=== PATIENT | male | born 1935 | race African-American/Black ===

== ENCOUNTER 2017-01-23 13:56 | Emergency (ER) | payer MEDICARE ==
[~2017-01-23] VITALS: Ht 188 cm; Wt 95.5 kg
[~2017-01-23 13:56] MED LIST: ALLEGRA-D 1212 HOUR PO; AMIODARONE200 MG PO; AMLODIPINE10 MG PO; ASPIRIN EC81 MG PO; ASPIRIN LOW DOS81 M2 PO; CHILD'S ASA81 MG PO; CLOPIDOGREL75 MG PO; COUMADIN5 MG PO; EC ASPIRIN325 M1 PO; ELDERTONIC OR; FLONASE NASAL50 MCG; FLUARIX QUADRIV1 IN1 IM; HYDROCHLORO25 MG/TAB PO; HYDROCHLOROT25 MG PO; HYDROCO/APAP1 T10 PO; LISINOPRIL10 MG PO; LOVASTATIN20 MG PO; LOVASTATIN40 MG PO; MECLIZINE25 MG PO; MEDDOSEPAK PO; MEDROL4 M1 PO; METOPROL TAR100 MG PO; MOBIC7.5 MG PO; PERIACTIN4 MG PO; PLAVIX75 MG PO; PRAVASTATIN80 MG PO; RYBIX ODT50 MG PO; ZPAK PO; ZYRTEC-D AL1 PO
[2017-01-23] MEDS ORDERED: COUMADIN5 MG PO (14:28)
[2017-01-23] MEDS ORDERED: GABAPENTIN100 MG PO (14:29)
[2017-01-23 15:22] LABS: HEMATOCRIT 38.9 % (39.0-50.0); HEMOGLOBIN 13.9 g/dl (14.0-18.0); IMMATURE GRANULOCYTES 0.7 % (0.0-1.0); MEAN CELL VOLUME 79.7 fL CALC (80.0-100.0); MEAN CORPUSCULAR HGB 28.5 pG CALC (26.0-32.0); MEAN CORPUSCULAR HGB CONC 35.7 g/L CALC (32.0-36.0); NEUT# 5.12 thou/uL (1.82-7.42); RED BLOOD COUNT 4.88 mill/uL (4.70-6.10); RED CELL DISTRI WIDTH 15.5 % (11.5-15.5)
[2017-01-23 15:33] LABS: ALBUMIN 3.8 g/dL (3.2-5.0); BILIRUBIN, TOTAL 0.8 mg/dL (0.0-1.4); CREATININE 1.7 mg/dL (0.7-1.3); POTASSIUM 3.8 mmol/l (3.5-5.1)
[2017-01-23] MEDS ORDERED: INDOCIN25 MG PO (15:42)
[2017-01-23 15:52] VITALS: BP 131/52
== END 2017-01-23 15:58 | disposition home or self-care (01) ==
LOC: ED 13:56
PROVIDERS: Emergency Medicine
DX: M25.572 Pain in left ankle and joints of left foot (principal); R22.42 Localized swelling, mass and lump, left lower limb; Z95.828 Presence of other vascular implants and grafts

== ENCOUNTER 2018-04-08 18:31 | Emergency (ER) | payer MEDICARE ==
[~2018-04-08] VITALS: Ht 188 cm; Wt 90.0 kg
[~2018-04-08 18:31] MED LIST changes: +GABAPENTIN100 MG PO; +INDOCIN25 MG PO
[2018-04-08 19:24] LABS: HEMATOCRIT 37.4 % (39.0-50.0); HEMOGLOBIN 12.7 g/dl (14.0-18.0); IMMATURE GRANULOCYTES 0.3 % (0.0-5.0); MEAN CELL VOLUME 81.3 fL CALC (80.0-100.0); MEAN CORPUSCULAR HGB 27.6 pG CALC (26.0-32.0); NEUT# 5.48 thou/uL (1.82-7.42); RED BLOOD COUNT 4.6 mill/uL (4.70-6.10); RED CELL DISTRI WIDTH 15.3 % (11.5-15.5)
[2018-04-08 19:34] LABS: ALBUMIN 3.9 g/dL (3.2-5.0); CREATININE 2.6 mg/dL (0.7-1.3); TOTAL PROTEIN 7.4 g/dL (6.3-8.2)
[2018-04-08 19:35] LABS: POTASSIUM 4.7 mmol/l (3.5-5.1)
[2018-04-08] MEDS ORDERED: DOXYCYCL HYC100 MG PO (20:02)
[2018-04-08 20:18] VITALS: BP 144/65
== END 2018-04-08 20:18 | disposition home or self-care (01) ==
LOC: ED 18:31
PROVIDERS: Family Medicine
DX: J18.9 Pneumonia, unspecified organism (principal); R05 Cough; R09.81 Nasal congestion; I10 Essential (primary) hypertension

== ENCOUNTER 2018-04-10 13:50 | Inpatient (IN) | payer MEDICARE ==
[~2018-04-10] VITALS: Ht 188 cm; Wt 80.0 kg
[~2018-04-10 13:50] MED LIST changes: +DOXYCYCL HYC100 MG PO
[2018-04-10 14:05] VITALS: BP 109/59
[2018-04-10 16:06] LABS: HEMATOCRIT 40.9 % (39.0-50.0); HEMOGLOBIN 13.6 g/dl (14.0-18.0); IMMATURE GRANULOCYTES 0.3 % (0.0-5.0); MEAN CELL VOLUME 82.6 fL CALC (80.0-100.0); MEAN CORPUSCULAR HGB 27.5 pG CALC (26.0-32.0); MEAN CORPUSCULAR HGB CONC 33.3 g/L CALC (32.0-36.0); NEUT# 4.73 thou/uL (1.82-7.42); RED BLOOD COUNT 4.95 mill/uL (4.70-6.10); RED CELL DISTRI WIDTH 15.4 % (11.5-15.5)
[2018-04-10 16:23] LABS: CREATININE 2.5 mg/dL (0.7-1.3); POTASSIUM 4.9 mmol/l (3.5-5.1)
[2018-04-10 16:28] LABS: INTERNATIONAL NORMALIZED RATIO 3.2 RATIO (0.7-1.3); PROTHROMBIN TIME 32.9 SECONDS (9.0-12.5)
[2018-04-10 16:30] VITALS: BP 116/61
[2018-04-10 16:35] LABS: URINE BILIRUBIN - DIPSTICK NEGATIVE (NEGATIVE); URINE BLOOD DIPSTICK NEGATIVE (NEGATIVE); URINE COLOR YELLOW; URINE GLUCOSE - DIPSTICK NEGATIVE (NEGATIVE); URINE KETONE NEGATIVE (NEGATIVE); URINE LEUK ESTERASE NEGATIVE (NEGATIVE); URINE NITRITE - DIPSTICK NEGATIVE (Negative); URINE PH 5.5 (4.5-8.0); URINE PROTEIN - DIPSTICK NEGATIVE (NEG-TRACE); URINE SPECIFIC GRAVITY 1.025; URINE UROBILINOGEN - DIPSTICK 0.2 E.U./dL (0.2)
[2018-04-10 16:38] LABS: URINE CLARITY CLEAR
[2018-04-10 17:42] LABS: CHOLESTEROL HDL RATIO 2.6 (<4.4 (CALC))
[2018-04-10 20:04] VITALS: BP 109/59
[2018-04-11 04:00] VITALS: BP 119/53
[2018-04-11 05:34] LABS: BILIRUBIN, TOTAL 0.4 mg/dL (0.0-1.4); CREATININE 2.4 mg/dL (0.7-1.3); POTASSIUM 4.2 mmol/l (3.5-5.1)
[2018-04-11 05:35] LABS: IMMATURE GRANULOCYTES 0.3 % (0.0-5.0); MEAN CELL VOLUME 81.7 fL CALC (80.0-100.0); MEAN CORPUSCULAR HGB 27.9 pG CALC (26.0-32.0); MEAN CORPUSCULAR HGB CONC 34.1 g/L CALC (32.0-36.0); NEUT# 4.64 thou/uL (1.82-7.42); RED BLOOD COUNT 4.16 mill/uL (4.70-6.10); RED CELL DISTRI WIDTH 15.1 % (11.5-15.5)
[2018-04-11 05:38] LABS: HEMOGLOBIN 11.6 g/dl (14.0-18.0)
[2018-04-11 05:39] LABS: INTERNATIONAL NORMALIZED RATIO 3.3 RATIO (0.7-1.3); PROTHROMBIN TIME 33.9 SECONDS (9.0-12.5)
[2018-04-11 08:02] VITALS: BP 124/49
== END 2018-04-11 10:12 | DRG 194 ==
LOC: MS2 13:50
PROVIDERS: ADMIT Internal Medicine Geriatric Medicine; ATTEND Internal Medicine Geriatric Medicine
DX: J18.9 Pneumonia, unspecified organism (principal); J44.0 Chronic obstructive pulmonary disease with (acute) lower respiratory infection; I49.5 Sick sinus syndrome; I12.9 Hypertensive chronic kidney disease with stage 1 through stage 4 chronic kidney disease, or unspecified chronic kidney disease; N18.9 Chronic kidney disease, unspecified; J04.0 Acute laryngitis; I25.10 Atherosclerotic heart disease of native coronary artery without angina pectoris; I48.91 Unspecified atrial fibrillation; M19.90 Unspecified osteoarthritis, unspecified site; I25.2 Old myocardial infarction; Z95.5 Presence of coronary angioplasty implant and graft